=== PATIENT | female | born 1960 | race Caucasian/White ===

== ENCOUNTER → 2016-10-17 | Outpatient (REF) | payer BC ==
[~2016-10-17] MED LIST: ASPI81TA85 PO; CALC600T21 PO; LEVO137T2 PO; METF500T4 PO; MULTLIQ7 PO; VITA100037 PO; VITA500C24 PO
== END ==
LOC: M LAB REF 16:19
PROVIDERS: ATTEND Physician Assistant
DX: J03.90 Acute tonsillitis, unspecified (principal)

== ENCOUNTER → 2021-01-05 | Outpatient (CLI) | payer BC ==
[~2021-01-05] MED LIST changes: -ASPI81TA85 PO; +ASPI81TA86 PO; -CALC600T21 PO; +CALC600T60 PO; +METF-838 PO; -METF500T4 PO; -VITA100037 PO; +VITA100067 PO
--- NOTE | 2021-01-05 14:41 | REP ---
INDICATION: ENCTR SCREEN MAMMO FOR MALIGNANT NEOPLASM OF BREAST. COMPARISON: Multiple TECHNIQUE: Digital screening mammography was carried out bilaterally in the CC and MLO projections using both 2D and 3D modalities and compared to the prior exams. By history, the patient has no complaints of a palpable breast abnormality or other significant breast complaints. FINDINGS: The breasts are unchanged in size and shape. Once again, scattered dense heterogenous fibroglandular elements are seen bilaterally. In the left breast upper aspect near 12 o'clock there is a potential tiny harley asymmetric density best seen on the DBT images. No other suspicious features are seen in either breast. There is no internal architectural distortion. There are no suspicious microcalcifications. There is no skin thickening or nipple retraction. The Volpara volumetric breast density pattern is b. IMPRESSION: BIRADS/ACR category 0 mammogram. Potential tiny harley asymmetric density seen in the left breast as described above and for which diagnostic digital DBT spot compression views recommended in the CC and MLO projections along with diagnostic ultrasonography if indicated. This patient's Tyrer-Cuzick lifetime breast cancer risk assessment score is 11.9%. This mammogram was interpreted with the aid of an FDA-approved computer-aided detection system. The patient states she had a clinical breast exam in October 2020. The patient letter being requested is M0. RECOMMENDATION: As above <Electronically signed by Miguel Whitney > 01/05/21 [id number]
== END ==
LOC: M WHC 12:46
PROVIDERS: ATTEND Obstetrics & Gynecology
DX: Z12.31 Encounter for screening mammogram for malignant neoplasm of breast (principal); R92.8 Other abnormal and inconclusive findings on diagnostic imaging of breast

== ENCOUNTER → 2021-02-01 | Outpatient (CLI) | payer BC ==
--- NOTE | 2021-02-01 15:58 | REP ---
INDICATION: LEFT BREAST ADD VIEWS. Possible tiny harley density in the left breast in the 12 o'clock position on screening mammography from January 05, 2021. COMPARISON: January 05, 2021, November 30, 2019, and November 24, 2018. TECHNIQUE: Magnified focal spot-compression CC and MLO views of the left breast are obtained. A true mediolateral view of the left breast is obtained with 3D tomography. Targeted left breast sonography is performed in the 12 o'clock position. This mammogram was interpreted with the aid of an FDA-approved computer-aided detection system. FINDINGS: There are scattered fibroglandular elements. The tiny density observed on the recent screening exam is not confirmed on diagnostic magnified focal spot compression or true mediolateral projection images. No suspicious mammographic finding. The Volpara volumetric breast density pattern is b. Targeted ultrasound: Targeted left breast sonography in the region of 11-1 o'clock shows normal stromal elements sonographically. No cyst mass or acoustic shadowing is seen. No suspicious sonographic finding. IMPRESSION: BIRADS/ACR category 1-left breast mammographic and sonographic findings. This patient's Tyrer-Cuzick lifetime breast cancer risk assessment score is 11.9%. RECOMMENDATION: Repeat screening mammography recommended 1 year (for women over 40). The patient letter being requested is M1. <Electronically signed by Levi Barbosa > 02/01/21 [id number]
== END ==
LOC: M WHC 14:07
PROVIDERS: ATTEND Obstetrics & Gynecology
DX: R92.8 Other abnormal and inconclusive findings on diagnostic imaging of breast (principal)
CPT/HCPCS: 76642; 77065; G0279

== ENCOUNTER → 2022-01-09 | Outpatient (CLI) | payer BC | LOC: M WHC 13:25 | PROVIDERS: ATTEND Obstetrics & Gynecology | DX: Z12.31 Encounter for screening mammogram for malignant neoplasm of breast (principal); R92.8 Other abnormal and inconclusive findings on diagnostic imaging of breast ==

== ENCOUNTER → 2022-02-14 | Outpatient (CLI) | payer BC | LOC: M WHC 11:33 | PROVIDERS: ATTEND Obstetrics & Gynecology | DX: Z12.31 Encounter for screening mammogram for malignant neoplasm of breast (principal) | CPT/HCPCS: 77065; G0279 ==

== ENCOUNTER → 2023-11-20 | Outpatient (REF) | payer BC ==
[2023-11-20 14:36] LABS: IMMUNOGLOBULIN A 134.2 MG/DL (40-350)
[2023-11-20 14:38] LABS: CARCINOEMBRYONIC ANTIGEN < 2.0 NG/ML (<2.5)
== END ==
LOC: M LAB REF 13:16
PROVIDERS: ATTEND Internal Medicine
DX: Z80.0 Family history of malignant neoplasm of digestive organs (principal)

== ENCOUNTER 2024-03-16 06:44 | Day surgery (SDC) | payer BC ==
[~2024-03-16] VITALS: Ht 167.6 cm; Wt 82.6 kg
[~2024-03-16 06:44] MED LIST changes: +LEVO100T5 PO; +NS 250 ML IV ONE
[2024-03-16] MEDS ORDERED: propofoL 200 MG/20 ML VIAL As Ordered ONE (07:28)
[2024-03-16] MEDS ORDERED: LIDOCAINE 2% 100MG/5ML SDV (FOR ANES.) As Ordered ONE (07:28)
[2024-03-16] MEDS ORDERED: GLYCOPYRROLATE INJ 0.2 MG/ML 2 ML VIAL As Ordered ONE (07:29)
[2024-03-16 07:54] VITALS: TEMP 97.5
[2024-03-16 08:09] VITALS: BP 125/71; O2SAT 99
== END 2024-03-16 08:22 | disposition home or self-care (01) ==
LOC: M OPP 06:44
PROVIDERS: ATTEND Internal Medicine Gastroenterology
DX: Z12.11 Encounter for screening for malignant neoplasm of colon (principal); K64.0 First degree hemorrhoids; K57.30 Diverticulosis of large intestine without perforation or abscess without bleeding; K55.20 Angiodysplasia of colon without hemorrhage; Z80.0 Family history of malignant neoplasm of digestive organs; E03.9 Hypothyroidism, unspecified; Z79.890 Hormone replacement therapy; Z79.84 Long term (current) use of oral hypoglycemic drugs; Z91.041 Radiographic dye allergy status
CPT/HCPCS: 45380; 88305; J1596

== ENCOUNTER → 2024-05-28 | Outpatient (CLI) | payer BC ==
[~2024-05-28] MED LIST changes: -NS 250 ML IV ONE
== END ==
LOC: M WUC 15:21
PROVIDERS: ATTEND Internal Medicine
DX: R22.41 Localized swelling, mass and lump, right lower limb (principal)

== ENCOUNTER → 2024-10-29 | Outpatient (REF) | payer BC ==
[2024-10-29 18:24] LABS: BASO # 0.1 10^3/uL (0.0-0.2); BASO % 2.0 % (0.0-1.0); EOS # 0.1 10^3/uL (0.0-0.5); EOS % 2.0 % (0.0-3.0); LYMPH # 1.7 10^3/uL (1.5-5.0); LYMPH % 27.5 % (24.0-44.0); MONO # 0.4 10^3/uL (0.0-0.8); MONO % 7.1 % (2.0-8.0); NEUTROPHILS # 3.7 10^3/uL (1.5-8.5); NEUTROPHILS % 61.2 % (36.0-66.0); PLATELET COUNT, AUTOMATED 220 10^3/uL (150-450)
[2024-10-29 18:48] LABS: ALT/SGPT 15 U/L (7.0-40); AST/SGOT 21 U/L (<34); CALCIUM LEVEL 9.0 MG/DL (8.3-10.6); CARBON DIOXIDE LEVEL 28 MMOL/L (20-31); CHLORIDE LEVEL 104 MMOL/L (98-107); CHOLESTEROL LEVEL 184 MG/DL (<200); CHOLESTEROL RISK RATIO 2.16 (<5); CREATININE FOR GFR 0.67 MG/DL (0.55-1.30); GLOMERULAR FILTRATION RATE > 90.0 (>45); LDL CHOLESTEROL 82.6 MG/DL (<100); NON-HDL-C 99.2 MG/DL; POTASSIUM SERUM 4.0 MMOL/L (3.5-5.1); SODIUM LEVEL 143 MMOL/L (136-145); TRIGLYCERIDES LEVEL 83 MG/DL (<150)
[2024-10-29 18:50] LABS: FREE T4 1.30 NG/DL (0.89-1.76)
[2024-10-29 19:01] LABS: ESTIMATED AVERAGE GLUCOSE 120.0 MG/DL (60-110)
== END ==
LOC: M LAB REF 17:44
PROVIDERS: ATTEND Internal Medicine
DX: E11.9 Type 2 diabetes mellitus without complications (principal); E06.3 Autoimmune thyroiditis

== ENCOUNTER 2025-01-05 03:33 | Emergency (ER) | payer BC ==
[~2025-01-05] VITALS: Ht 167.6 cm; Wt 66.4 kg
[~2025-01-05 03:33] MED LIST changes: -FARX1TAB5
[2025-01-05] MEDS ORDERED: FARX1TAB5 (03:44)
[2025-01-05 04:17] LABS: BASO # 0.1 10^3/uL (0.0-0.2); BASO % 0.9 % (0.0-1.0); EOS # 0.2 10^3/uL (0.0-0.5); EOS % 1.7 % (0.0-3.0); LYMPH # 2.4 10^3/uL (1.5-5.0); LYMPH % 24.0 % (24.0-44.0); MONO # 0.6 10^3/uL (0.0-0.8); MONO % 5.9 % (2.0-8.0); NEUTROPHILS # 6.7 10^3/uL (1.5-8.5); NEUTROPHILS % 67.3 % (36.0-66.0); PLATELET COUNT, AUTOMATED 246 10^3/uL (150-450)
[2025-01-05 04:43] LABS: ALT/SGPT 20 U/L (7.0-40); AST/SGOT 28 U/L (<34); CALCIUM LEVEL 9.6 MG/DL (8.3-10.6); CARBON DIOXIDE LEVEL 31 MMOL/L (20-31); CHLORIDE LEVEL 104 MMOL/L (98-107); CREATININE FOR GFR 0.69 MG/DL (0.55-1.30); GLOMERULAR FILTRATION RATE > 90.0 (>45); POTASSIUM SERUM 3.8 MMOL/L (3.5-5.1); SODIUM LEVEL 145 MMOL/L (136-145)
[2025-01-05 06:30] VITALS: BP 122/72; TEMP 98.2; O2SAT 99
== END 2025-01-05 06:32 | disposition home or self-care (01) ==
LOC: M ED 03:33
DX: A08.4 Viral intestinal infection, unspecified (principal); K92.2 Gastrointestinal hemorrhage, unspecified; E11.9 Type 2 diabetes mellitus without complications; Z79.899 Other long term (current) drug therapy; Z91.041 Radiographic dye allergy status

== ENCOUNTER → 2025-01-05 | Outpatient (REF) | payer BC ==
[~2025-01-05] MED LIST changes: +FARX1TAB5
== END ==
LOC: M LAB REF 15:07
PROVIDERS: ATTEND Emergency Medicine
DX: K92.1 Melena (principal)